=== PATIENT | male | born 1995 | race Caucasian/White ===

== ENCOUNTER 2019-02-15 06:19 | Day surgery (SDC) | payer OTHER ==
[2019-02-13 09:20] VITALS: BMI 46.0
[~2019-02-15 06:19] MED LIST: DEXAMETHASONE SOD PHOSPHATE 10 MG/ML 1 ML VIAL IV ONE; DEXAMETHASONE SOD PHOSPHATE 4 MG/ML 1 ML VIAL IV ONE; FAMOTIDINE 20 MG/2 ML VIAL IV ONE; LACTATED RINGERS 1,000 ML IV SCH; LIDOCAINE 1% 20 ML VIAL (10MG/ML) FOR IV START INTRADERMA PRN; ONDANSETRON 4 MG/2 ML VIAL IVP ONE; Pre Op ABX Message 1 EACH MISC MISCELLANE ONE; SCOPOLAMINE 1.5MG/72HR PATCH TRANSDERM ONE
[2019-02-15] MEDS ORDERED: SUCCINYLCHOLINE CHLORIDE 100 MG/5 ML SYR IV ONE (07:34)
[2019-02-15] MEDS ORDERED: fentaNYL (PF) 50 MCG/ML 2 ML AMP ONE (07:34)
[2019-02-15] MEDS ORDERED: DEXAMETHASONE SOD PHOS (MDV) 100 MG/10 ML VIAL ONE (07:34)
[2019-02-15] MEDS ORDERED: SUCCINYLCHOLINE CHLORIDE VIAL 200 MG/10 ML VIAL IV ONE (07:34)
[2019-02-15] MEDS ORDERED: LIDOCAINE 1% INJ 10MG/ML (20 ML MDV) ONE (07:34)
[2019-02-15] MEDS ORDERED: PROPOFOL 10 MG/ML 20 ML VIAL IV ONE (07:34)
[2019-02-15] MEDS ORDERED: MIDAZOLAM 2 MG/2 ML VIAL ONE (07:34)
--- NOTE | 2019-02-15 08:30 | P.OP ---
Date of Procedure: 02/15/19 Preoperative Diagnosis: Chronic tonsillitis Adenotonsillar hypertrophy Postoperative Diagnosis: Same Procedure(s) Performed: Adenotonsillectomy Anesthesia: GWENDOLYNA Surgeon: Jono Briggs Estimated Blood Loss (ml): 3 Pathology: other (Tonsils) Condition: stable Disposition: PACU Indications for Procedure: This is a 23-year-old white male whose had problems with chronic and recurrent tonsillitis for over a year with tonsillitis every 2-3 months requiring antibiotics. Operative Findings: Adenoids moderately enlarged, tonsils +3.5 bilaterally, Description of Procedure: Patient was brought in the operative suite and placed in a supine position. The patient underwent induction of general anesthesia with oral endotracheal intubation without difficulty. The patient was prepped and draped in usual aseptic fashion. The McIvor mouth gag was placed. The soft palate was palpated and no submucous cleft was noted. Red Rondon catheters placed the right nasal cavity and pulled the oropharynx for soft palate retraction. Nasopharynx was evaluated with mirror exam and the adenoids were vaporized with suction cautery. Hemostasis was noted to be excellent and the catheter was removed. Left tonsil grasped with curved Allis clamp and dissected from tonsillar fossa in a superior to inferior direction using both blunt and electrocautery dissection in a superior to inferior direction until the tonsil was removed. Once tonsils removed hemostasis was gained with suction cautery. Once hemostasis was obtained attention was turned to the right where the right tonsil was removed exactly as the left had been. Once this tonsil was removed hemostasis was gained with suction cautery. Once hemostasis was obtained and remained good in both tonsillar fossa the patient was suctioned in oral gastric fashion the McIvor mouth gag was placed. The patient was allowed to emerge from general anesthesia having tolerated procedure well. The patient was extubated in the operating suite and transferred to postop recovery area in satisfactory condition.
[2019-02-15 08:47] VITALS: TEMP 97
[2019-02-15 08:59] VITALS: RESP 18
[2019-02-15] MEDS: HYDROmorphone 0.5 MG/0.5 ML SYRINGE IVP PRN ×2 (09:04→09:10)
[2019-02-15] MEDS ORDERED: HYDROcodone/APAP 7.5-325MG 1 EACH TAB PO ONE (10:43)
[2019-02-15 11:20] VITALS: BP 137/98; PULSE 101
== END 2019-02-15 11:28 | disposition home or self-care (01) ==
LOC: OR 06:19
PROVIDERS: ATTEND Otolaryngology
DX: J03.91 Acute recurrent tonsillitis, unspecified (principal); J35.01 Chronic tonsillitis; E66.01 Morbid (severe) obesity due to excess calories; Z68.42 Body mass index [BMI] 45.0-49.9, adult; Z79.899 Other long term (current) drug therapy
CPT/HCPCS: 88304; 42821; J2250; J0330; J1100 ×2; J2405; J0690; J2001; J3010; J2704; J1170

== ENCOUNTER 2019-02-22 01:04 | Emergency (ER) | payer OTHER ==
[2019-02-22 01:11] VITALS: RESP 18
--- NOTE | 2019-02-22 02:55 | ED ---
ENT HPI - General Chief complaint: ENT Stated complaint: Post Op Complication, wound Time Seen by Provider: 02/22/19 01:25 Source: patient Mode of arrival: ambulatory - History of Present Illness Initial comments: 23-year-old male patient who is status post tonsillectomy 6 days ago presents to the emergency department today for evaluation of bleeding from the right side of his throat. Patient states he was clearing his throat this morning when he started to have a small trickle of blood. Patient states this lasted throughout the day until this evening when the bleeding became more heavy. Patient states he is unable to get the bleeding to stop. Denies any dizziness or weakness. Denies any significant pain currently. Patient denies use of anticoagulant or antiplatelet medications. Denies any fever or chills. Patient denies any recent rash, shortness breath, chest pain, abdominal pain, nausea, vomiting, diarrhea, constipation, back pain, numbness, tingling, hematuria, dysuria, urinary urgency, urinary frequency, headache, visual changes, or any other complaints. - Related Data Home Medications Medication Instructions Recorded Confirmed No Known Home Medications 11/08/15 02/15/19 Allergies Allergy/AdvReac Type Severity Reaction Status Date / Time No Known Allergies Allergy Verified 02/22/19 01:11 Review of Systems ROS Statement: Those systems with pertinent positive or pertinent negative responses have been documented in the HPI. ROS Other: All systems not noted in ROS Statement are negative. Past Medical History Past Medical History: No Reported History History of Any Multi-Drug Resistant Organisms: None Reported Past Surgical History: Adenoidectomy, Tonsillectomy Past Anesthesia/Blood Transfusion Reactions: No Reported Reaction Additional Past Anesthesia/Blood Transfusion Reaction / Comment(s): NO PRIOR SURGICAL HX Past Psychological History: No Psychological Hx Reported Smoking Status: Never smoker Past Alcohol Use History: None Reported Past Drug Use History: None Reported - Past Family History Mother Family Medical History: No Reported History General Exam General appearance: alert, in no apparent distress, other (Physical well- developed, well-nourished adult male patient in no acute distress. Vital signs upon presentation are temperature 98.0F, pulse 111, respirations 18, blood pressure 185/105, pulse ox 100% on room air.) Eye exam: Present: normal appearance, PERRL, EOMI. Absent: scleral icterus, conjunctival injection, periorbital swelling ENT exam: Present: mucous membranes moist, other (Patient has active bleeding noted to the right tonsillar excision site.). Absent: normal exam, normal oropharynx Respiratory exam: Present: normal lung sounds bilaterally. Absent: respiratory distress, wheezes, rales, rhonchi, stridor Cardiovascular Exam: Present: regular rate, normal rhythm, normal heart sounds. Absent: systolic murmur, diastolic murmur, rubs, gallop, clicks Neurological exam: Present: alert, oriented X3, CN II-XII intact Psychiatric exam: Present: normal affect, normal mood Skin exam: Present: warm, dry, intact, normal color. Absent: rash Course Vital Signs 02/22/19 02/22/19 01:09 03:11 Temperature 98 F 98.7 F Pulse Rate 111 H 63 Respiratory 18 18 Rate Blood Pressure 185/105 129/93 O2 Sat by Pulse 100 100 Oximetry Medical Decision Making - Medical Decision Making 23-year-old male patient presents to the emergency department today for evaluation of her excision site. Patient is 6 days status post tonsillectomy. Physical examination did reveal bleeding from the right side. Patient was asked to gargle with ice water. Patient did do 34 glasses of ice water. We will able to get the bleeding to stop. He was monitored for a period of 30-45 minutes with no bleeding. Vital signs did improve. He'll be discharged home at this time to follow-up with his ENT specialist for further evaluation tomorrow. Return parameters discussed in detail. He verbalizes understanding and agrees with this plan. Disposition Clinical Impression: Post-op bleeding Disposition: HOME SELF-CARE Condition: Good Instructions (If sedation given, give patient instructions): Tonsillectomy (DC) Additional Instructions: If bleeding starts again gargle with ice water. If bleeding does not stop return to the emergency department for immediate evaluation. Call your ENT specialist in the morning for further instruction. Return to the emergency department for any other new, worsening, or concerning symptoms. Is patient prescribed a controlled substance at d/c from ED?: No Referrals: Salvador Hardy MD [Primary Care Provider] - 1-2 days Jono Briggs MD [STAFF PHYSICIAN] - 1-2 days Time of Disposition: 02:55
[2019-02-22 03:11] VITALS: BP 129/93; PULSE 63; TEMP 98.7
== END 2019-02-22 03:11 | disposition home or self-care (01) ==
LOC: EC 01:04
DX: T81.89XA Other complications of procedures, not elsewhere classified, initial encounter (principal); Z98.890 Other specified postprocedural states
CPT/HCPCS: 99283

== ENCOUNTER → 2024-12-21 | Outpatient (CLI) | payer OTHER ==
[2024-12-21 15:28] VITALS: BP 174/94; PULSE 98; RESP 16; TEMP 97.9
--- NOTE | 2024-12-21 16:05 | P.SLEEP ---
History of Present Illness DATE: 12/21/2024 CONSULTATION/NEW PATIENT EVALUATION HISTORY OF PRESENT ILLNESS/SLEEP-WAKE EVALUATION: 69-year-old gentleman had been evaluated in the sleep center for possible obstructive sleep apnea hypopnea syndrome. SLEEP SCHEDULE: Usually sleep schedule from 2 AM until 11 AM on weekdays and from 1 AM until 9:45 AM on weekend. FALLING ASLEEP: No problems with falling asleep. DURING SLEEP: Patient may have mild snoring. No history of hypnogogical hallucinations, sleep paralysis, or cataplexy. Usually patient does not wake up from sleep. DURING THE DAY/WAKE STATE: Patient denied any sleepiness. [place] sleepiness scale is 0. Patient does not take naps. PAST MEDICAL HISTORY: Hypertension. PAST SURGICAL HISTORY: Tonsillectomy and adenoidectomy. MEDICATIONS: Armodafinil 5 mg once a day. SOCIAL HISTORY: Please see below. FAMILY HISTORY: Please see below. REVIEW OF SYSTEMS: Mild snoring. No fevers. No double vision. No recent chest pain. No shortness of breath. No abdominal pain. No bleeding episodes. No blood in urine. No seizure episodes. PHYSICAL EXAMINATION: GENERAL: A pleasant patient without any distress. VITAL SIGNS: Please see below, weight 321 pounds, BMI 47.4. HEENT: PERRLA, EOMI. Evaluation of oropharynx showed tongue protrudes midline, low position of soft palate Mallampati 23. NECK: Supple. No JVD. Thyroid is not palpable. 21 inches in circumference. LUNGS: Clear to percussion and to auscultation. Good air exchange. No wheezing or rhonchi. HEART: S1, S2 regular. No murmurs, gallops or rubs. ABDOMEN: Soft and nontender. Bowel sounds are present. No organomegaly appreciated. EXTREMITIES: No clubbing or cyanosis. 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 Cranial nerves 2 to 7 intact. There is no fasciculation or atrophy noted. No focal deficits observed. ASSESSMENT: 1. Mild snoring, extremely wide neck 21 inches, moderately low position of soft palate Mallampati 23. Possible obstructive sleep apnea hypopnea syndrome. 2. Hypertension. 3. Obesity, BMI 47.4. 4. Status post tonsillectomy and adenoidectomy. 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 PLAN: 1. Home sleep apnea test for evaluation of patient's breathing during sleep. 2. Following plan after reading sleep study. 3. Preferable position during sleep on the side. 4. No driving if patient feels any sleepiness. Patient is aware of civil and criminal liability for unsafe driving. 5. Sleep hygiene with regular sleep time for at least 7.5-8 hours. 6. Watching and losing weight. Thank you very much for referring this patient for consultation. Sincerely, Gee Glass MD, PhD, FAASM. Diplomat of [place], Sleep Medicine Board by [employer] [employer] Director [facility] [place] Past Medical History Past Medical History: No Reported History, Hypertension History of Any Multi-Drug Resistant Organisms: None Reported Past Surgical History: Adenoidectomy, Tonsillectomy Past Anesthesia/Blood Transfusion Reactions: No Reported Reaction Additional Past Anesthesia/Blood Transfusion Reaction / Comment(s): NO PRIOR SURGICAL HX Past Psychological History: No Psychological Hx Reported Smoking Status: Vaper Past Alcohol Use History: None Reported Past Drug Use History: None Reported - Past Family History Mother Family Medical History: Diabetes Mellitus Medications and Allergies Home Medications Medication Instructions Recorded Confirmed Type amLODIPine [Norvasc] 5 mg PO DAILY 12/21/24 12/21/24 History Allergies Allergy/AdvReac Type Severity Reaction Status Date / Time No Known Allergies Allergy Verified 02/22/19 01:11 Physical Exam Vitals: Vital Signs Temp Pulse Resp BP Pulse Ox 12/21/24 15:27 97.9 F 98 16 174/94 98 Intake and Output 12/21/24 12/21/24 12/21/24 06:59 14:59 22:59 Other: Weight 145.603 kg Sleep Note - Sleep Data ESS Total: 0 - Sleep Note Sleep Note: Temperature: 97.9 F Pulse Rate: 98 Respiratory Rate: 16 Blood Pressure: 174/94 SpO2: 98 Height: 5 ft 9 in Weight: 145.603 kg BMI: Neck Circumference: 21
== END ==
LOC: 3 N SLEEP 14:54
PROVIDERS: ATTEND Internal Medicine
DX: E66.9 Obesity, unspecified (principal); I10 Essential (primary) hypertension; Z90.89 Acquired absence of other organs
CPT/HCPCS: 99202

== ENCOUNTER → 2024-12-28 | Outpatient (CLI) | payer OTHER ==
--- NOTE | 2025-01-04 18:39 | P.PCN ---
Description of Procedure: CLINICAL: A home sleep apnea test has been done for confirmation of possible obstructive sleep apnea-hypopnea syndrome. DESCRIPTION OF PROCEDURE: RESULTS: Recording time was 7 hours 52 minutes. Evaluation time was 3 hours 47 minutes. Evaluation time is not sufficient for making conclusion about results of the test. Raw data of sleep recording has been reviewed and is adequate. Respiratory channel showed 58 apneas and 67 hypopneas. Apnea-hypopnea index was 32.9 per hour,. Pulse rate in the range between minimum 80, maximum 146, average 73 by computer calculation. Lowest desaturation was 62%. IMPRESSION: 1. Obstructive Sleep Apnea Hypopnea Syndrome in severe range, but evaluation time is not sufficient for official conclusion. Please see other impressions from consultation. PLAN: 1. Repeat home sleep apnea test. 2. Following plan after reading sleep study. 3. Watching and losing weight. 4. Sleep hygiene with regular time in bed for at least 8 hours. 5. No driving if feeling any sleepiness. Thank you very much for allowing me to participate in the management of your patient. Sincerely, Gee Glass MD, PhD, FAASM Diplomat of [employer] Sleep Medicine Board of [employer] [place] Super[employer] [facility] [place]
== END ==
LOC: 3 N SLEEP 16:45
PROVIDERS: ATTEND Internal Medicine
DX: G47.33 Obstructive sleep apnea (adult) (pediatric) (principal)